=== PATIENT | female | born 1970 | race Caucasian/White ===

== ENCOUNTER → 2016-08-24 | Outpatient (CLI) | payer BC | END | disposition home or self-care (01) | LOC: LABWHC1 13:49 | PROVIDERS: ATTEND Internal Medicine Endocrinology, Diabetes & Metabolism | DX: E21.0 Primary hyperparathyroidism (principal) | CPT/HCPCS: 36415; 84443 ==

== ENCOUNTER → 2016-10-11 | Outpatient (CLI) | payer BC ==
[2016-10-11 13:59] LABS: Anisocytosis Slight; CH 24.8; CHCM 30.7; HCT 32.6 % (34.0-46.0); HDW 3.26; Hypochromasia Marked; MCH 24.8 pg (25.0-35.0); MCHC 30.6 g/dL (31.0-37.0); MCV 81.2 fL (80.0-100.0); Mean Platelet Volume 7.7; RBC 4.02 m/uL (3.80-5.40); RDW 16.8 % (11.5-15.5); WBC 7.5 k/uL (3.8-10.6)
[2016-10-11 14:35] LABS: % Iron Saturation 5.3 % (20-50)
== END | disposition home or self-care (01) ==
LOC: LABWHC1 13:18
PROVIDERS: ATTEND Internal Medicine Endocrinology, Diabetes & Metabolism
DX: R53.83 Other fatigue (principal)
CPT/HCPCS: 36415; 82728; 83540; 83550; 85027

== ENCOUNTER → 2017-04-25 | Outpatient (CLI) | payer BC ==
[2017-04-25 14:09] LABS: ALT 28 U/L (9-52); AST 19 U/L (14-36); Alkaline Phosphatase 63 U/L (38-126); Anion Gap 11 mmol/L; Blood Urea Nitrogen 15 mg/dL (7-17); Calcium 9.9 mg/dL (8.4-10.2); Carbon Dioxide 25 mmol/L (22-30); Chloride 102 mmol/L (98-107); Glucose 105 mg/dL (74-99); Non-African American GFR(MDRD) >60 (>60 ml/min/1.73 sqM); Sodium 138 mmol/L (137-145); Total Bilirubin 0.3 mg/dL (0.2-1.3); Total Protein 7.1 g/dL (6.3-8.2)
== END | disposition home or self-care (01) ==
LOC: LABWHC1 12:00
PROVIDERS: ATTEND Internal Medicine Endocrinology, Diabetes & Metabolism
DX: E03.8 Other specified hypothyroidism (principal); E21.0 Primary hyperparathyroidism
CPT/HCPCS: 36415; 80053; 82306; 83970; 84443

== ENCOUNTER → 2017-07-06 | Outpatient (CLI) | payer BC | END | disposition home or self-care (01) | LOC: LABWHC1 14:50 | PROVIDERS: ATTEND Internal Medicine Endocrinology, Diabetes & Metabolism | DX: E03.8 Other specified hypothyroidism (principal); R89.9 Unspecified abnormal finding in specimens from other organs, systems and tissues | CPT/HCPCS: 36415; 84439; 84443 ==

== ENCOUNTER 2017-10-05 18:22 | Observation (INO) | payer BC ==
[2017-10-05] MEDS ORDERED: ASPIRIN 81 MG PO STA (18:25)
[2017-10-05] MEDS ORDERED: NITROGLYCERIN OINT 1 INCH/GM PACKET TOPICAL STA (18:26)
--- NOTE | 2017-10-05 18:30 | ED ---
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 Patient states she also became short of breath. Patient states it was a burning sensation and it was quite significant for at least 3-4 minutes. Patient states she has no high blood pressure no diabetes no high cholesterol. Patient denies any significant family history. Patient denies any smoking. Patient states she has had an upper respiratory cold recently but has not been associated with any shortness of breath. Patient denies any abdominal pain patient denies nausea vomiting diarrhea. Patient denies any diaphoresis. Patient denies any calf pain patient denies any leg swelling. Patient states she was mildly lightheaded while this event occurred but did not feel near syncopal - Related Data Home Medications Medication Instructions Recorded Confirmed ALPRAZolam [Xanax] 0.25 mg PO TID PRN 06/15/16 10/05/17 buPROPion HCL [Wellbutrin SR] 150 mg PO BID 06/15/16 10/05/17 Ibuprofen [Motrin Ib] 400 mg PO Q6H PRN 10/05/17 10/05/17 Levothyroxine Sodium [Synthroid] 88 mcg PO DAILY 10/05/17 10/05/17 Gummy 1 tab PO DAILY 10/05/17 10/05/17 Vitamin C/Biotin [Hair, Skin and 1 tab PO DAILY 10/05/17 10/05/17 Nails] Allergies Allergy/AdvReac Type Severity Reaction Status Date / Time No Known Allergies Allergy Verified 10/05/17 18:53 Review of Systems ROS Statement: Those systems with pertinent positive or pertinent negative responses have been documented in the HPI. ROS Other: All systems not noted in ROS Statement are negative. Past Medical History Past Medical History: GERD/Reflux, Thyroid Disorder Additional Past Medical History / Comment(s): hx migraines, hx IBS, chronic anemia, kidney stones History of Any Multi-Drug Resistant Organisms: None Reported Past Surgical History: Cholecystectomy Additional Past Surgical History / Comment(s): laproscopic 97 Past Anesthesia/Blood Transfusion Reactions: Postoperative Nausea & Vomiting ( PONV) Additional Past Anesthesia/Blood Transfusion Reaction / Comment(s): took longer to wake up Past Psychological History: Anxiety, Depression Smoking Status: Former smoker Past Alcohol Use History: Occasional Additional Past Alcohol Use History / Comment(s): quit smoking 2013, smoked for 15 yrs- 2- 2 1/2 PPD Past Drug Use History: None Reported - Past Family History Father Family Medical History: Cancer Mother Family Medical History: Cancer General Exam - General Exam Comments Initial Comments: GENERAL: Patient is well-developed and well-nourished. Patient is nontoxic and well- hydrated and is in mild distress. ENT: Neck is soft and supple. No significant lymphadenopathy is noted. Oropharynx is clear. Moist mucous membranes. EYES: The sclera were anicteric and conjunctiva were pink and moist. Extraocular movements were intact and pupils were equal round and reactive to light. Eyelids were unremarkable. PULMONARY: Unlabored respirations. Good breath sounds bilaterally. No audible rales rhonchi or wheezing was noted. CARDIOVASCULAR: There is a regular rate and rhythm without any murmurs gallops or rubs. ABDOMEN: Soft and nontender with normal bowel sounds. No palpable organomegaly was noted. There is no palpable pulsatile mass. SKIN: Skin is clear with no lesions or rashes and otherwise unremarkable. NEUROLOGIC: Patient is alert and oriented x3. Cranial nerves II through XII are grossly intact. Motor and sensory are also intact. Normal speech, volume and content. Symmetrical smile. MUSCULOSKELETAL: Normal extremities with adequate strength and full range of motion. No lower extremity swelling or edema. No calf tenderness. LYMPHATICS: No significant lymphadenopathy is noted PSYCHIATRIC: Normal psychiatric evaluation. 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 It was 146 dresses 82 QT interval 314 QTC is 427. Patient has some inverted T waves in the inferior leads as well as some T-wave flattening in V3 through V6. Repeat EKG when the patient blood pressure dropped to 150s systolically showed a normal sinus rhythm at 97 bpm CA interval is 158 QRSs 86 QT interval 338 QTC is 429. Patient's EKG continued to have some T-wave inversions or flattening in the inferior leads as well as flattening in some of the precordial leads. Chest x-ray shows no acute abnormality. I went in to tell the patient that she has some abnormal T waves in her EKG and that she should stick around and see cardiology in the morning and have repeat enzymes done throughout the night. Patient states she didn't want to stay I again informed her that I prefer that she stay and I thought it was dangerous to go home she again stated she wanted to go home. She states she'll follow-up with the primary medical care doctor and return if there is any pain or new symptoms. After speaking with her she decided to stay. I spoke with Dr. Avery's nurse practitioner she accepted the admission I admitted the patient consult cardiology started the patient on heparin. I admitted the patient to the floor I continued heparin Nitropaste and aspirin on the floor The patient was admitted she started having some burning in the chest EKG showed a sinus tachycardia at 107 bpm CA interval is 144 QRS is 88 QT interval 344 QTC is 459 per patient's EKG again showed T wave inversions in inferior leads and flattening in the precordial leads V3 through V6. - Lab Data Result diagrams: 10/05/17 18:40 10/05/17 18:40 Lab Results 10/05/17 10/05/17 10/05/17 Range/Units 18:40 18:40 18:40 WBC 6.5 (3.8-10.6) k/uL RBC 4.45 (3.80-5.40) m/uL Hgb 10.9 L (11.4-16.0) gm/dL Hct 35.3 (34.0-46.0) % MCV 79.3 L (80.0-100.0) fL MCH 24.5 L (25.0-35.0) pg MCHC 31.0 (31.0-37.0) g/dL RDW 16.8 H (11.5-15.5) % Plt Count 417 (150-450) k/uL Neutrophils % 58 % Lymphocytes % 31 % Monocytes % 6 % Eosinophils % 3 % Basophils % 0 % Neutrophils # 3.7 (1.3-7.7) k/uL Lymphocytes # 2.0 (1.0-4.8) k/uL Monocytes # 0.4 (0-1.0) k/uL Eosinophils # 0.2 (0-0.7) k/uL Basophils # 0.0 (0-0.2) k/uL Hypochromasia Slight Anisocytosis Slight Microcytosis Slight PT (9.0-12.0) sec INR (<1.2) APTT (22.0-30.0) sec D-Dimer 0.28 (<0.60) mg/L FEU Sodium (137-145) mmol/L Potassium (3.5-5.1) mmol/L Chloride (98-107) mmol/L Carbon Dioxide (22-30) mmol/L Anion Gap mmol/L BUN (7-17) mg/dL Creatinine (0.52-1.04) mg/dL Est GFR (MDRD) Af Amer (>60 ml/min/1.73 sqM) Est GFR (MDRD) Non-Af (>60 ml/min/1.73 sqM) Glucose (74-99) mg/dL Calcium (8.4-10.2) mg/dL Magnesium (1.6-2.3) mg/dL Total Bilirubin (0.2-1.3) mg/dL AST (14-36) U/L ALT (9-52) U/L Alkaline Phosphatase (38-126) U/L Total Creatine Kinase 38 (30-135) U/L CK-MB (CK-2) <0.2 (0.0-2.4) ng/mL CK-MB (CK-2) Rel Index Troponin I <0.012 (0.000-0.034) ng/mL Total Protein (6.3-8.2) g/dL Albumin (3.5-5.0) g/dL 10/05/17 10/05/17 Range/Units 18:40 18:40 WBC (3.8-10.6) k/uL RBC (3.80-5.40) m/uL Hgb (11.4-16.0) gm/dL Hct (34.0-46.0) % MCV (80.0-100.0) fL MCH (25.0-35.0) pg MCHC (31.0-37.0) g/dL RDW (11.5-15.5) % Plt Count (150-450) k/uL Neutrophils % % Lymphocytes % % Monocytes % % Eosinophils % % Basophils % % Neutrophils # (1.3-7.7) k/uL Lymphocytes # (1.0-4.8) k/uL Monocytes # (0-1.0) k/uL Eosinophils # (0-0.7) k/uL Basophils # (0-0.2) k/uL Hypochromasia Anisocytosis Microcytosis PT 9.8 (9.0-12.0) sec INR 1.0 (<1.2) APTT 22.2 (22.0-30.0) sec D-Dimer (<0.60) mg/L FEU Sodium 140 (137-145) mmol/L Potassium 3.7 (3.5-5.1) mmol/L Chloride 101 (98-107) mmol/L Carbon Dioxide 25 (22-30) mmol/L Anion Gap 14 mmol/L BUN 11 (7-17) mg/dL Creatinine 0.63 (0.52-1.04) mg/dL Est GFR (MDRD) Af Amer >60 (>60 ml/min/1.73 sqM) Est GFR (MDRD) Non-Af >60 (>60 ml/min/1.73 sqM) Glucose 136 H (74-99) mg/dL Calcium 8.9 (8.4-10.2) mg/dL Magnesium 1.8 (1.6-2.3) mg/dL Total Bilirubin 0.4 (0.2-1.3) mg/dL AST 22 (14-36) U/L ALT 27 (9-52) U/L Alkaline Phosphatase 72 (38-126) U/L Total Creatine Kinase (30-135) U/L CK-MB (CK-2) (0.0-2.4) ng/mL CK-MB (CK-2) Rel Index Troponin I (0.000-0.034) ng/mL Total Protein 7.3 (6.3-8.2) g/dL Albumin 4.3 (3.5-5.0) g/dL Critical Care Time Critical Care Time: Yes Total Critical Care Time: 35 Disposition Clinical Impression: Unstable angina pectoris Disposition: ADMITTED IP TO THIS HOSP Instructions: Chest Pain (ED) Referrals: Arias Ortega DO [Primary Care Provider] - 1-2 days Time of Disposition: 19:43
[2017-10-05 19:00] LABS: Anisocytosis Slight; Basophils % (A) 0 %; Eosinophils # (A) 0.2 k/uL (0-0.7); Eosinophils % (A) 3 %; HCT 35.3 % (34.0-46.0); HGB 10.9 gm/dL (11.4-16.0); Hypochromasia Slight; Lymphocytes % (A) 31 %; MCH 24.5 pg (25.0-35.0); MCV 79.3 fL (80.0-100.0); Mean Platelet Volume 7.1; Microcytosis Slight; Monocytes # (A) 0.4 k/uL (0-1.0); Monocytes % (A) 6 %; Neutrophils # (A) 3.7 k/uL (1.3-7.7); Neutrophils % (A) 58 %; Platelet Count 417 k/uL (150-450); RBC 4.45 m/uL (3.80-5.40); RDW 16.8 % (11.5-15.5); WBC 6.5 k/uL (3.8-10.6)
[2017-10-05 19:10] LABS: ALT 27 U/L (9-52); AST 22 U/L (14-36); Albumin 4.3 g/dL (3.5-5.0); Alkaline Phosphatase 72 U/L (38-126); Anion Gap 14 mmol/L; Blood Urea Nitrogen 11 mg/dL (7-17); Calcium 8.9 mg/dL (8.4-10.2); Carbon Dioxide 25 mmol/L (22-30); Chloride 101 mmol/L (98-107); Glucose 136 mg/dL (74-99); Potassium 3.7 mmol/L (3.5-5.1); Sodium 140 mmol/L (137-145); Total Bilirubin 0.4 mg/dL (0.2-1.3); Total Protein 7.3 g/dL (6.3-8.2)
[2017-10-05 19:14] LABS: Creatine Kinase 38 U/L (30-135)
--- NOTE | 2017-10-05 19:16 | XR ---
EXAMINATION TYPE: XR chest 2V DATE OF EXAM: 10/05/2017 COMPARISON: NONE HISTORY: Chest pain TECHNIQUE: Frontal and lateral views of the chest are obtained. FINDINGS: There is no focal air space opacity. No evidence for pneumothorax. No pleural effusion. The cardiac silhouette size is within normal limits. The osseous structures are grossly intact. IMPRESSION: 1. No acute cardiopulmonary process.
[2017-10-05 19:26] LABS: Creatine Kinase MB <0.2 ng/mL (0.0-2.4); Troponin I <0.012 ng/mL (0.000-0.034)
[2017-10-05 19:30] LABS: Partial Thromboplastin Time 22.2 sec (22.0-30.0); Prothrombin Time 9.8 sec (9.0-12.0)
[2017-10-05] MEDS ORDERED: NITROGLYCERIN SL TABS 0.4 MG TAB SUBLINGUAL PRN (20:03)
[2017-10-05] MEDS ORDERED: HEPARIN SODIUM,PORCINE 5,000 UNIT/ML 1 ML VIAL IV ONE (20:09)
[2017-10-05] MEDS ORDERED: HEPARIN SOD,PORK IN 0.45% NACL 25,000 UNIT in 0.45% NACL 1 500ML.BAG IV SCH (20:15)
[2017-10-05] MEDS ORDERED: ALPRAZolam 0.25 MG TAB PO PRN (21:37)
[2017-10-05] MEDS ORDERED: IBUPROFEN 400 MG TAB PO PRN (21:37)
[2017-10-05] MEDS ORDERED: traMADol 50 MG TAB PO PRN (21:39)
[2017-10-05] MEDS ORDERED: MORPHINE SULFATE 4 MG/ML SYRINGE IVP PRN (21:40)
[2017-10-05] MEDS ORDERED: ALPRAZolam 0.5 MG TAB PO PRN (21:41)
[2017-10-05] MEDS: ACETAMINOPHEN TAB 325 MG TAB PO PRN (21:42)
[2017-10-05] MEDS ORDERED: HEPARIN SODIUM,PORCINE 5,000 UNIT/ML 1 ML VIAL IV PRN (21:51)
[2017-10-05] MEDS: NITROGLYCERIN OINT 1 INCH/GM PACKET TOPICAL SCH (23:53)
[2017-10-06] MEDS: ACETAMINOPHEN TAB 325 MG TAB PO PRN (02:31)
[2017-10-06 02:43] LABS: Cholesterol 189 mg/dL (<200); HDL Cholesterol 40 mg/dL (40-60); LDL Cholesterol,Calculated 83 mg/dL (0-99); Triglycerides 332 mg/dL (<150)
[2017-10-06 02:44] LABS: Creatine Kinase 34 U/L (30-135)
[2017-10-06 02:55] LABS: Creatine Kinase MB <0.2 ng/mL (0.0-2.4); Troponin I <0.012 ng/mL (0.000-0.034)
--- NOTE | 2017-10-06 03:07 | HP ---
HISTORY AND PHYSICAL DATE OF SERVICE: 10/05/2017 CHIEF COMPLAINT: Chest pain. HISTORY OF PRESENT ILLNESS: This 47-year-old woman with a past medical history of GERD, history of hypothyroidism, migraines, IBS, chronic anemia, cholecystectomy, history of parathyroid adenoma, history of anxiety, depression being followed by Dr. Ortega in the outpatient setting apparently had chest discomfort which discomfort which was described as more of a pressure type, which radiated to the neck and jaw as well as the shoulder and arm and the patient became slightly short of breath while at work and patient also had a burning sensation. The patient came to [facility] and was admitted for further evaluation and treatment. Patient also has GERD symptoms. There is no history of fever, rigors or chills. No history of headache, loss of consciousness, seizures. Patient did have an episode of flu about a week ago and patient had not taken antibiotics. Clear sputum is reported. PAST MEDICAL HISTORY: History of GERD, hypothyroidism, migraine, cholecystectomy, history of recent flu, anxiety, depression. MEDICATIONS: Prior to admission include: 1. Wellbutrin SR 750 mg p.o. b.i.d. 2. Vitamins. 3. gummy. 4. Synthroid 88 mcg p.o. daily. 5. Motrin 400 mg q.h.s. p.r.n. 6. Xanax 0.5 t.i.d. p.r.n. ALLERGIES: None. FAMILY HISTORY: History of cancer, history of CVA, TIA in the family. SOCIAL HISTORY: Previous history of smoking. No history of current smoking or alcohol intake. REVIEW OF SYSTEMS: ENT: No diminished vision. No diminished hearing. Cardiovascular: As mentioned earlier. Respiratory: As mentioned earlier. GI no nausea or vomiting. no dysuria. Nervous system: No numbness or weakness. Allergy/Immunology: No asthma or hayfever. Musculoskeletal as mentioned earlier. Hematology/Oncology: No history of anemia. Endocrine: Hypothyroidism. CONSTITUTIONAL: As mentioned earlier. Dermatology: Negative. Rheumatology: Negative. Psychiatric: As mentioned earlier. PHYSICAL EXAMINATION: Alert, oriented times three, pulse 96, blood pressure 118/70, respiration 18, temperature 97.7, pulse ox 97% on room air. HEENT: Conjunctivae normal. Oral mucosa moist. Neck is no jugular venous distention. No carotid bruit. No lymph node enlargement. Cardiovascular system: S1, S2. RESPIRATORY: Breath sounds diminished in the bases. No rhonchi. No crackles. ABDOMEN: Soft, nontender. No mass palpable. Legs: No edema, no swelling. NERVOUS SYSTEM: Higher functions as mentioned earlier. Moves all four limbs. No focal deficits. Lymphatics: No lymph nodes palpable in the neck, axillae or groin. SKIN: No ulcer, rash or bleeding. Joints: No active deforming arthropathy. LAB STUDIES: WBC 6.1, hemoglobin 10.9. ASSESSMENT: 1. Chest pain possible unstable angina. 2. History of recent bronchitis. 3. Increased random blood sugar. 4. Normocytic anemia. 5. Gastroesophageal reflux disease. 6. Hypothyroidism. 7. History of migraine. 8. History of chronic anemia. 9. History of nephrolithiasis. 10.Hyperparathyroidism. 11.History of cholecystectomy. 13.History of anxiety, depression. 14.Remote history of nicotine dependence. RECOMMENDATIONS AND DISCUSSION: In this 47-year-old woman who presented with multiple complex medical issues, we will monitor the patient closely, continue the current medications, management and symptomatic treatment. Rule out myocardial infarction. Unstable angina protocol. Possible stress test. Resume the home medications. Otherwise I would also recommend monitor closely and if she has any purulent sputum, I would also recommend a short course of antibiotics also. The lungs are clear at this time. The chest x-ray was done in the emergency room which showed no acute pulmonary processes. A copy of dictation being forwarded to Dr. Ortega, who is the primary physician. MMJOYCEL / FLORIN: [id number] / MTDD
[2017-10-06] MEDS: NITROGLYCERIN OINT 1 INCH/GM PACKET TOPICAL SCH ×2 (04:42→15:56)
[2017-10-06] MEDS ORDERED: LEVOTHYROXINE 88 MCG TAB PO SCH (06:30)
[2017-10-06 07:47] LABS: Creatine Kinase 39 U/L (30-135)
[2017-10-06 07:59] LABS: Creatine Kinase MB <0.2 ng/mL (0.0-2.4); Troponin I <0.012 ng/mL (0.000-0.034)
[2017-10-06] MEDS ORDERED: ASPIRIN 325 MG TAB PO SCH (09:00)
[2017-10-06] MEDS ORDERED: PRENATAL VIT-IRON-FOLIC ACID 1 EACH CAP PO SCH (09:00)
[2017-10-06] MEDS ORDERED: buPROPion SR 150 MG TABLET.ER PO SCH (09:00)
--- NOTE | 2017-10-06 11:50 | CONS ---
CONSULTATION Mrs. Sherman is a 47-year-old female, who is seen for cardiac evaluation. 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 The patient was working yesterday and she felt slightly lightheaded and short of breath and then she had some burning sensation in the chest which lasted for 3 to 4 minutes with some minimal radiation to the left arm. She was slightly short of breath. She felt lightheaded, but she did not pass out. The patient gives a history that she did have some upper respiratory tract infection and a cold recently but she does not have any symptoms. Patient was afebrile in the emergency room. The patient was admitted for observation. During the night the patient had a couple of times mild discomfort lasting for less than a minute. The patient is physically active and denies any exertional chest pain. There is no family history of coronary artery disease. The patient has a history of hypothyroidism. There is no history of diabetes or hypertension. HOME MEDICATIONS: Home medications include Xanax, Wellbutrin, Motrin, Synthroid, gummy. PAST MEDICAL HISTORY: Past medical history includes history of a cholecystectomy, history of parathyroid removed and history of hypothyroidism. The patient also has a history of anxiety and depression. SMOKING HISTORY: The patient is a former smoker. She quit smoking in 2013. FAMILY HISTORY: Family history is otherwise unremarkable. PHYSICAL EXAMINATION: Physical examination at present reveals a 47-year-old, obesely built who does not appear to be in any acute distress. In the emergency room, the patient's heart rate was 102. Blood pressure was 140/70 mmHg. HEENT examination is negative. Neck is supple. There is no increase in jugular venous pressure. Both the carotid pulses are felt. There is no bruit. Chest is symmetrical. HEART: The PMI is not felt. First and second heart sounds are normal. There is no evidence of any murmur. Lungs are clinically clear to auscultation and percussion. Abdomen is soft. Liver and spleen are not enlarged. Bowel sounds are heard. EXTREMITIES: Peripheral pulsations are 2+. EKG shows normal sinus rhythm without any acute ischemic changes. Cardiac enzymes are normal. D-dimer is 0.28. Patient's triglycerides were 332, but it was not a fasting sample. Cholesterol is 189. IMPRESSION: 1. Chest pain, suggestive of atypical angina. EKGs and cardiac enzymes are normal. 2. History of hypothyroidism. 3. Elevated triglycerides, but it is not a fasting sample. RECOMMENDATIONS: The patient will be evaluated with echocardiogram and stress echocardiographic study. The patient is advised to repeat fasting lipid panel as an outpatient. LYNDSAY / IJN: [id number] /
[2017-10-06] MEDS ORDERED: MULTIVITAMINS, THERA 1 EACH TAB PO SCH (12:00)
[2017-10-06 12:32] VITALS: BP 131/74; PULSE 90; RESP 17; TEMP 97.8
--- NOTE | 2017-10-06 12:59 | ECHOS ---
STRESS ECHOCARDIOGRAM INDICATIONS: [place] MEDICATIONS: Synthroid, Wellbutrin, Xanax. BASELINE HEART RATE: 90 BASELINE BLOOD PRESSURE: 142/84 MAXIMUM HEART RATE: 161 MAXIMUM BLOOD PRESSURE: 178/57 85% MPHR: 146 100% MPHR: 172 METS: 5.8 MAXIMUM STAGE REACHED: I TOTAL EXERCISE TIME: 4:01 CLINICAL INFORMATION: Patient was exercised for a total period of 4 minutes, a peak heart rate of 161 was achieved. Maximum blood pressure of 178/57 mmHg was noted. Patient did not complain of any chest pain during the test. Resting EKG shows normal sinus rhythm with normal IL interval and QRS duration and normal ST-T waves. No ST-segment depression suggestive of ischemia was noted. The baseline echocardiographic images reveal normal left ventricular chamber size with normal left ventricular systolic function. In the immediate post exercise period, normal increase in the wall thickness and contractility is noted. FINAL IMPRESSION: 1. This stress echocardiographic study is negative for stress-induced ischemia. 2. EKG portion of the stress test is not suggestive of ischemia. 3. Patient's exercise tolerance is below average. MMODL / IJN: [id number] /
--- NOTE | 2017-10-06 12:59 | ECHOF ---
Referral Reason:chest pain MEASUREMENTS -------- HEIGHT: 175.3 cm WEIGHT: 113.4 kg BP: RVIDd: 2.9 cm (< 3.3) IVSd: 1.0 cm (0.6 - 1.1) LVIDd: 4.2 cm (3.9 - 5.3) LVPWd: 1.2 cm (0.6 - 1.1) IVSs: 1.2 cm LVIDs: 2.5 cm LVPWs: 1.6 cm Ao Diam: 2.8 cm (2.0 - 3.7) AV Cusp: 1.6 cm (1.5 - 2.6) LA Diam: 3.4 cm (2.7 - 3.8) MV EXCURSION: 15.965 mm (> 18.000) MV EF SLOPE: 110 mm/s (70 - 150) EPSS: 0.2 cm MV E Yadiel: 0.78 m/s MV DecT: 136 ms MV A Yadiel: 0.83 m/s MV E/A Ratio: 0.94 RAP: 5.00 mmHg RVSP: 19.26 mmHg FINDINGS -------- Sinus rhythm. This was a technically adequate study. The left ventricular size is normal. There is borderline concentric left ventricular hypertrophy. Overall left ventricular systolic function is normal with, an EF between 55 - 60 %. The right ventricle is normal in size and function. The left atrium is normal in size. The right atrium is normal in size. The aortic valve is trileaflet, and appears structurally normal. No aortic stenosis or regurgitation. The mitral valve leaflets are mildly thickened. There is trace mitral regurgitation. Trace tricuspid regurgitation present. The right ventricular systolic pressure, as measured by Dopp ler, is 19.26mmHg. Trace/mild (physiologic) pulmonic regurgitation. The aortic root size is normal. Normal inferior vena cava with normal inspiratory collapse consistent with estimated right atrial pre ssure of 5 mmHg. The pericardium is normal. CONCLUSIONS -------- 1. Sinus rhythm. 2. This was a technically adequate study. 3. The left ventricular size is normal. 4. There is borderline concentric left ventricular hypertrophy. 5. Overall left ventricular systolic function is normal with, an EF between 55 - 60 %. 6. The right ventricle is normal in size and function. 7. The left atrium is normal in size. 8. The right atrium is normal in size. 9. The aortic valve is trileaflet, and appears structurally normal. No aortic stenosis or regurgitati on. 10. The mitral valve leaflets are mildly thickened. 11. There is trace mitral regurgitation. 12. Trace tricuspid regurgitation present. 13. The right ventricular systolic pressure, as measured by Doppler, is 19.26mmHg. 14. Trace/mild (physiologic) pulmonic regurgitation. 15. The aortic root size is normal. 16. Normal inferior vena cava with normal inspiratory collapse consistent with estimated right atrial pressure of 5 mmHg. 17. The pericardium is normal. BRIDGE DESIGN ENGINEER: Vilma Etienne RDCS
[2017-10-06] MEDS ORDERED: MORPHINE ORAL SOLN 10 MG/5 ML CUP PO PRN (13:25)
--- NOTE | 2017-10-06 21:23 | DS ---
DISCHARGE SUMMARY FINAL DIAGNOSES: 1. Chest pain. Negative stress test. Possible gastroesophageal reflux disease. 2. History of recent bronchitis. 3. Increased random blood sugar. 4. Normocytic anemia. 5. History of gastroesophageal reflux disease. 6. Hypothyroidism. 7. History of migraines. 8. Chronic anemia. 9. History of nephrolithiasis. 10.History of hyperparathyroid. 11.History of cholecystectomy. 12.History of anxiety/depression. 13.Remote history of nicotine dependence. DISCHARGE DISPOSITION: The patient is being discharged in stable condition with guarded prognosis. HISTORY OF PRESENT ILLNESS: This 47-year-old woman with a past medical history of multiple medical problems, admitted with chest discomfort. Patient was myocardial infarction was also ruled out. Cardiovascular: S1, S2. Stress echo which was normal. Dr. Ortega is following the patient in the outpatient setting. The patient discharged in stable condition with guarded prognosis with the following advice and medication: On exam, vitals are stable. CARDIOVASCULAR: S1, S2. Abdomen soft. Central nervous system: No focal deficits. Triglycerides found to be 332. I recommend the patient repeat lipid panel in the outpatient setting. 1. Discharge diet is cardiac diet. 2. Activity limited until followup. 3. Follow up with Dr. Ortega in 2-3 days. 4. Follow up with the litigation counsel as advised. MEDICATIONS ARE: 1. Tylenol 650 q.4h p.r.n. 2. Xanax 0.5 t.i.d. p.r.n. 3. Wellbutrin XR 150 mg p.o. b.i.d. 4. Motrin 400 mg q.6h p.r.n. 5. Synthroid 88 mcg p.o. daily. 6. Protonix 40 mg. 7. gummy 1 p.o. daily. 8. Vitamin C 1 p.o. daily. Once again, the patient is being discharged in stable condition with guarded prognosis. MMODL / IJN: [id number] /
== END 2017-10-06 14:50 | disposition home or self-care (01) ==
LOC: EC 18:22 → 3OBS 20:03
PROVIDERS: ADMIT Hospitalist; ATTEND Hospitalist
DX: R07.89 Other chest pain (principal); R06.02 Shortness of breath; R73.09 Other abnormal glucose; D64.9 Anemia, unspecified; E03.9 Hypothyroidism, unspecified; E78.1 Pure hyperglyceridemia; K21.9 Gastro-esophageal reflux disease without esophagitis; K58.9 Irritable bowel syndrome, unspecified; G43.909 Migraine, unspecified, not intractable, without status migrainosus; F41.9 Anxiety disorder, unspecified; F32.9 Major depressive disorder, single episode, unspecified; Z79.899 Other long term (current) drug therapy; Z90.49 Acquired absence of other specified parts of digestive tract; Z87.891 Personal history of nicotine dependence; Z87.09 Personal history of other diseases of the respiratory system; Z86.39 Personal history of other endocrine, nutritional and metabolic disease; Z86.018 Personal history of other benign neoplasm; Z82.3 Family history of stroke; Z80.9 Family history of malignant neoplasm, unspecified; Z87.442 Personal history of urinary calculi
CPT/HCPCS: 99291 ×2; 96365 ×2; 96376 ×3; 96366 ×2; 36415; 93005; 93017; 93306; 93350; 85379; 80061; 80053; 82550 ×2; 82553 ×2; 83735; 84484 ×2; 85025; 85610; 85730 ×2; 71046; G0378 ×2; J1644 ×3

== ENCOUNTER → 2017-10-24 | Outpatient (CLI) | payer BC ==
[2017-10-25 13:58] LABS: T4, Free (Free Thyroxine) 1.14 ng/dL (0.78-2.19)
== END | disposition home or self-care (01) ==
LOC: LABWHC1 15:01
PROVIDERS: ATTEND Internal Medicine Endocrinology, Diabetes & Metabolism
DX: E03.8 Other specified hypothyroidism (principal)
CPT/HCPCS: 36415; 84439; 84443; 84481

== ENCOUNTER → 2018-06-20 | Outpatient (CLI) | payer BC ==
[2018-06-20 19:31] LABS: Albumin 4.5 g/dL (3.80-4.90); Albumin/Globulin Ratio 1.96 (1.20-2.10); Calcium 8.9 mg/dL (8.7-10.3); Globulin 2.3 g/dL (2.1-3.7); Potassium 4.3 mmol/L (3.5-5.5); Total Bilirubin 0.3 mg/dL (0.2-1.2); Total Protein 6.8 g/dL (6.2-8.2)
[2018-06-20 20:53] LABS: Parathyroid Hormone Intact 77.7 pg/mL (14.0-72.0)
[2018-06-20 21:39] LABS: Vitamin D 25 Hydroxy 22.3 ng/mL (30.0-100.0)
== END | disposition home or self-care (01) ==
LOC: LABWHC1 11:40
PROVIDERS: ATTEND Internal Medicine Endocrinology, Diabetes & Metabolism
DX: E03.8 Other specified hypothyroidism (principal); E21.0 Primary hyperparathyroidism
CPT/HCPCS: 36415; 80053; 82306; 83970; 84443

== ENCOUNTER → 2018-11-03 | Outpatient (CLI) | payer BC ==
[2018-11-03 11:48] LABS: LDL Cholesterol,Calculated 153.6 mg/dL (0.0-131.0); VLDL Calculation 40.4 mg/dL (5.00-40.00)
[2018-11-03 12:39] LABS: Hemoglobin A1C 5.8 % (4.0-6.0)
== END | disposition home or self-care (01) ==
LOC: LABWHC1 06:51
PROVIDERS: ATTEND Family Medicine
DX: E78.5 Hyperlipidemia, unspecified (principal); R73.03 Prediabetes
CPT/HCPCS: 36415; 80061; 83036; 84450; 84460

== ENCOUNTER → 2019-01-10 | Outpatient (CLI) | payer BC ==
[2019-01-10 18:28] LABS: Parathyroid Hormone Intact 81.9 pg/mL (14.0-72.0)
[2019-01-10 18:36] LABS: Albumin 4.3 g/dL (3.80-4.90); Albumin/Globulin Ratio 1.79 (1.60-3.17); Anion Gap 9.1 mmol/L (4.00-12.00); Calcium 9.3 mg/dL (8.7-10.3); Carbon Dioxide 22.9 mmol/L (21.6-31.8); Globulin 2.4 g/dL (1.6-3.3); Potassium 4.8 mmol/L (3.5-5.5); Total Bilirubin 0.4 mg/dL (0.2-1.2); Total Protein 6.7 g/dL (6.2-8.2)
== END | disposition home or self-care (01) ==
LOC: LABWHC1 12:54
PROVIDERS: ATTEND Internal Medicine Endocrinology, Diabetes & Metabolism
DX: E03.8 Other specified hypothyroidism (principal); E21.0 Primary hyperparathyroidism
CPT/HCPCS: 36415; 80053; 82306; 83970; 84443

== ENCOUNTER → 2019-05-22 | Outpatient (CLI) | payer BC ==
[2019-05-22 17:44] LABS: African American GFR (CKD) 99.6 (60.0-200.0); Albumin 4.5 g/dL (3.80-4.90); Albumin/Globulin Ratio 2.25 (1.60-3.17); Anion Gap 10.6 mmol/L (4.00-12.00); BUN/Creat Ratio 17.5 Ratio (12.00-20.00); Carbon Dioxide 25.4 mmol/L (21.6-31.8); Potassium 4.7 mmol/L (3.5-5.5); Total Bilirubin 0.5 mg/dL (0.3-1.2); Total Protein 6.5 g/dL (6.2-8.2)
== END | disposition home or self-care (01) ==
LOC: LABWHC1 09:54
PROVIDERS: ATTEND Internal Medicine Endocrinology, Diabetes & Metabolism
DX: E55.9 Vitamin D deficiency, unspecified (principal); E21.3 Hyperparathyroidism, unspecified; E03.8 Other specified hypothyroidism
CPT/HCPCS: 36415; 80053; 82306; 83970; 84443

== ENCOUNTER → 2019-05-25 | Outpatient (CLI) | payer BC ==
--- NOTE | 2019-05-25 10:06 | US ---
EXAMINATION TYPE: US thyroid st tissue head/neck DATE OF EXAM: 05/25/2019 COMPARISON: US March 26, 2016. CLINICAL HISTORY: E21.0 primary hyperparathyroidism. GLAND SIZE: Right Lobe: 4.8 x 1.6 x 1.5 cm Overall Parenchyma: heterogenous Left Lobe: 4.3 x 1.3 x 1.3 cm Overall Parenchyma: heterogeneous Isthmus Thickness: 0.2 cm NODULES RIGHT: # of nodules measured on right: 0 LEFT: # of nodules measured on left: 0 ISTHMUS: # of nodules measured in the isthmus: 0 Bilateral neck scanned, no evidence of lymphadenopathy. Persistent mildly heterogeneous normal-sized thyroid without discrete nodule. IMPRESSION: As above. No significant change from prior.
== END | disposition home or self-care (01) ==
LOC: RADUSWWP 09:40
PROVIDERS: ATTEND Internal Medicine Endocrinology, Diabetes & Metabolism
DX: E07.89 Other specified disorders of thyroid (principal)
CPT/HCPCS: 76536

== ENCOUNTER → 2019-10-16 | Outpatient (CLI) | payer BC ==
[2019-10-16 13:59] LABS: African American GFR (CKD) 117.1 (60.0-200.0); Albumin 4.2 g/dL (3.80-4.90); Albumin/Globulin Ratio 1.83 (1.60-3.17); Anion Gap 3.2 mmol/L (4.00-12.00); BUN/Creat Ratio 14.29 Ratio (12.00-20.00); Calcium 9.6 mg/dL (8.7-10.3); Carbon Dioxide 30.8 mmol/L (21.6-31.8); Globulin 2.3 g/dL (1.6-3.3); Potassium 4.7 mmol/L (3.5-5.5); Total Bilirubin 0.3 mg/dL (0.2-1.2); Total Protein 6.5 g/dL (6.2-8.2)
== END | disposition home or self-care (01) ==
LOC: LABWHC1 07:01
PROVIDERS: ATTEND Internal Medicine Endocrinology, Diabetes & Metabolism
DX: E21.3 Hyperparathyroidism, unspecified (principal); E03.8 Other specified hypothyroidism; E55.9 Vitamin D deficiency, unspecified
CPT/HCPCS: 36415; 80053; 82306; 83970; 84443

== ENCOUNTER → 2020-03-17 | Outpatient (CLI) | payer BC ==
[2020-03-17 17:15] LABS: African American GFR (CKD) 123.2 (60.0-200.0); Albumin/Globulin Ratio 1.67 (1.60-3.17); Anion Gap 4.7 mmol/L (4.00-12.00); BUN/Creat Ratio 18.33 Ratio (12.00-20.00); Calcium 9.2 mg/dL (8.7-10.3); Carbon Dioxide 26.3 mmol/L (21.6-31.8); Globulin 2.4 g/dL (1.6-3.3); Non-African American GFR(CKD) 106.3 (60.0-200.0); Potassium 4.6 mmol/L (3.5-5.5); Total Bilirubin 0.3 mg/dL (0.2-1.2); Total Protein 6.4 g/dL (6.2-8.2)
== END | disposition home or self-care (01) ==
LOC: LABWHC1 07:29
PROVIDERS: ATTEND Internal Medicine Endocrinology, Diabetes & Metabolism
DX: E03.8 Other specified hypothyroidism (principal); E55.9 Vitamin D deficiency, unspecified; Z86.39 Personal history of other endocrine, nutritional and metabolic disease
CPT/HCPCS: 36415; 80053; 82306; 83970; 84443

== ENCOUNTER → 2021-03-26 | Outpatient (CLI) | payer BC ==
--- NOTE | 2021-03-26 13:37 | XR ---
EXAMINATION TYPE: XR chest 2V DATE OF EXAM: 03/26/2021 COMPARISON: NONE TECHNIQUE: PA and lateral views submitted. HISTORY: Cough FINDINGS: The lungs are clear and there is no pneumothorax, pleural effusion, or focal pneumonia. Ossified gr anuloma right upper lobe. Heart size normal. No overt failure. Biapical pleural thickening. Atrophic and degenerative change of the spine. IMPRESSION: 1. No acute process.
== END | disposition home or self-care (01) ==
LOC: RADXRMAIN 13:23
PROVIDERS: ATTEND Nurse Practitioner
DX: R05 Cough (principal)
CPT/HCPCS: 71046